=== PATIENT | male | born 1985 | race Caucasian/White ===

== ENCOUNTER 2018-10-22 10:32 | Emergency (ER) | payer SELFPAY | END 2018-10-22 11:58 | disposition home or self-care (01) | LOC: MADERS 10:32 | DX: J06.9 Acute upper respiratory infection, unspecified (principal) | CPT/HCPCS: 87081; 87430; 87804; 99283 ==

== ENCOUNTER 2020-03-25 10:36 | Emergency (ER) | payer SELFPAY | END 2020-03-25 11:10 | disposition home or self-care (01) | LOC: MADERS 10:36 | DX: R10.9 Unspecified abdominal pain (principal); R19.7 Diarrhea, unspecified; Z20.828 Contact with and (suspected) exposure to other viral communicable diseases | CPT/HCPCS: 99283 ==

== ENCOUNTER 2021-04-14 21:23 | Emergency (ER) | payer SELFPAY | END 2021-04-14 23:00 | disposition left against medical advice (07) | LOC: MADERS 21:23 | DX: Z53.21 Procedure and treatment not carried out due to patient leaving prior to being seen by health care provider (principal) ==

== ENCOUNTER 2022-04-01 07:09 | Emergency (ER) | payer SELFPAY ==
[2022-04-01] MEDS ORDERED: Amoxicillin/Potassium Clav 875 MG TAB ONE (07:40)
== END 2022-04-01 07:43 | disposition home or self-care (01) ==
LOC: MADERS 07:09
DX: K04.7 Periapical abscess without sinus (principal); K02.9 Dental caries, unspecified; K03.81 Cracked tooth; F17.290 Nicotine dependence, other tobacco product, uncomplicated
CPT/HCPCS: 99282

== ENCOUNTER 2024-02-16 19:01 | Emergency (ER) | payer SELFPAY ==
[2024-02-16 20:30] LABS: Influenza A by NAA Not Detected (NotDetected); Influenza B by NAA Not Detected (NotDetected); SARS-CoV-2 NAA Rapid Test Not Detected (NotDetected)
== END 2024-02-16 20:41 | disposition home or self-care (01) ==
LOC: MADERS 19:01
DX: J06.9 Acute upper respiratory infection, unspecified (principal); B97.89 Other viral agents as the cause of diseases classified elsewhere; F17.290 Nicotine dependence, other tobacco product, uncomplicated
CPT/HCPCS: 87081; 87430; 99283